=== PATIENT | female | born 1970 | race Caucasian/White ===

== ENCOUNTER 2024-12-18 09:29 | Outpatient (CLI) | payer MEDICAID ==
[~2024-12-18 09:29] MED LIST: DIAZ5TAB PO
== END 2024-12-18 23:59 | disposition home or self-care (01) ==
LOC: MRI02 09:29
PROVIDERS: ATTEND Podiatrist Foot & Ankle Surgery
DX: M19.071 Primary osteoarthritis, right ankle and foot (principal); M79.671 Pain in right foot; M79.672 Pain in left foot; M21.611 Bunion of right foot; M25.374 Other instability, right foot; M21.41 Flat foot [pes planus] (acquired), right foot
CPT/HCPCS: 73718